=== PATIENT | female | born 1965 | race Caucasian/White ===

== ENCOUNTER 2020-12-23 09:23 | Outpatient (CLI) | payer OTHER, SELFPAY ==
--- NOTE | ~2020-12-23 | MM_ITS ---
EXAMINATION: MM screening sosa BI w sera HISTORY: Screening TECHNIQUE: Craniocaudal and mediolateral oblique 3-D tomosynthesis images were obtained and synthetic 2-D images were generated. CAD analysis was submitted and interpreted. COMPARISON: Comparison to multiple prior studies sequentially, with oldest reviewed study dated 07/25. BREAST PARENCHYMAL COMPOSITION: There are scattered areas of fibroglandular density. FINDINGS: There is no evidence of suspicious mass, calcification, or architectural distortion to sugg est malignancy in either breast. There has been no suspicious interval change. IMPRESSION: 1. No mammographic evidence of malignancy. 2. Recommend routine screening mammography in one year. BI-RADS Category 1: Negative Reviewed, dictated and finalized at location A. RVISOR ESTIMATOR AND DRAFTER
== END 2020-12-23 09:24 | disposition home or self-care (01) ==
LOC: ANHIMG 09:25
PROVIDERS: PCP Family Medicine; Visit Provider Family Medicine
DX: Z12.31 Encounter for screening mammogram for malignant neoplasm of breast (principal)
CPT/HCPCS: 77063; 77067

== ENCOUNTER → 2021-12-17 00:51 | Outpatient (CLI) | payer OTHER, SELFPAY ==
[2021-12-18 10:57] LABS: SARS-CoV-2 RNA PCR Negative
== END ==
PROVIDERS: PCP Family Medicine; Visit Provider Family Medicine
DX: R68.89 Other general symptoms and signs (principal); Z20.822 Contact with and (suspected) exposure to COVID-19
CPT/HCPCS: C9803; U0003; U0005

== ENCOUNTER 2022-02-02 09:30 | Outpatient (CLI) | payer OTHER, SELFPAY ==
--- NOTE | ~2022-02-02 | MM_ITS ---
EXAMINATION: MM screening sosa BI w sera HISTORY: Screening TECHNIQUE: Craniocaudal and mediolateral oblique 3-D tomosynthesis images were obtained and synthetic 2-D images were generated. CAD analysis was submitted and interpreted. COMPARISON: Comparison to multiple prior studies sequentially, with oldest reviewed study dated 11/01. BREAST PARENCHYMAL COMPOSITION: There are scattered areas of fibroglandular density. FINDINGS: There is no evidence of suspicious mass, calcification, or architectural distortion to sugg est malignancy in either breast. There has been no suspicious interval change. IMPRESSION: 1. No mammographic evidence of malignancy. 2. Recommend routine screening mammography in one year. BI-RADS Category 1: Negative Reviewed, dictated and finalized at location A. GATION DOCKET MANAGER
== END 2022-02-02 09:31 | disposition home or self-care (01) ==
LOC: ANHIMG 09:32
PROVIDERS: PCP Family Medicine; Visit Provider Family Medicine
DX: Z12.31 Encounter for screening mammogram for malignant neoplasm of breast (principal)
CPT/HCPCS: 77063; 77067

== ENCOUNTER 2022-11-01 11:21 | Outpatient (CLI) | payer OTHER, SELFPAY ==
--- NOTE | ~2022-11-01 | CT_ITS ---
EXAMINATION: CT abdomen pelvis w con DATE: 11/01/2022 11:51 INDICATION: Abdominal pain. Fever. TECHNIQUE: Computed tomography (CT) of the abdomen and pelvis was performed with 100 mL Omnipaque 350 intravenous contrast. Automated exposure control and iterative reconstruction technique were employe d. The dose-length product was 408.45 mGy-cm. COMPARISON: None. FINDINGS: The visualized portions of the lung bases demonstrate mild atelectasis. No pleural effusion . The heart size is normal. No pericardial effusion. Pectus excavatum is noted. There is a 12 mm cyst in the liver. There are changes of cholecystectomy. The spleen, pancreas, adrenal glands, and kidney s are normal. There are no dilated loops of bowel. The appendix is normal. There are no pathologicall y enlarged lymph nodes. There is no free intraperitoneal fluid. There is severe thoracic spondylosis and mild lumbar spondylosis. IMPRESSION: 1. No etiology for the patient's symptoms. Reviewed, dictated and finalized at location A. SCAPE NURSERYMAN
== END 2022-11-01 11:22 | disposition home or self-care (01) ==
PROVIDERS: PCP Family Medicine; Visit Provider Physician Assistant
DX: R10.31 Right lower quadrant pain (principal)
CPT/HCPCS: 74177; Q9967

== ENCOUNTER 2022-12-02 12:51 | Emergency (ER) | payer OTHER, SELFPAY ==
[2022-12-02 15:10] VITALS: BP 147/68; PULSE 89; RESP 16; TEMP 37.7; O2SAT 100
--- NOTE | 2022-12-02 15:32 | ED.URI ---
HPI - URI/Sore Throat General Chief Complaint: Upper Respiratory Infection Stated Complaint: cov pos, wants flu test Time Seen by Provider: 12/02/22 15:28 Source: patient and RN notes reviewed Mode of arrival: ambulatory Limitations: no limitations History of Present Illness HPI Narrative: 57-year-old female presented for complaint of headache, body aches, sinus pressure/congestion, cough, fever/chills. Onset 2 days. Temperature up to 100. She tested positive for COVID at home yesterday and wanted to confirm this positive test. She also wanted to test for influenza. 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 She denies shortness of breath, wheezing, nausea vomiting, diarrhea. MD elicited complaint: cough Related Data Allergies Allergy/AdvReac Type Severity Reaction Status Date / Time Antihistamines - Allergy Mild fast heart Verified 12/02/22 15:18 Ethylenediamine rate erythromycin base Allergy Mild Nausea and Verified 12/02/22 15:18 Vomiting Review of Systems Review of Systems: Per HPI [facility] Past Medical History Medical History Anxiety Depression Surgical History Surgical History Hx of cholecystectomy (~2009) Social History Social History Smoking packs per day: 0.25 Smoking cigarettes per day: 5.0 Years smoked: 1 Smoking pack-years: 0.25 Smoking status: Former smoker Tobacco type: cigarettes Additional smoking assessment comments: Patient states she smoked for a short period of time. Substance use type: does not use Lack of Transportation: No Lack of Food: Never True Current Housing: I Have Housing Concerned About Future Housing: No Difficulty Paying Gas/Electric Bills: No Difficulty Paying for Meds: No Currently Unemployed: No Education: High School Diploma/GED Difficulty w/ Childcare or Family Care: No Exam Narrative: GENERAL: Ill-appearing, nontoxic EYES: PERRLA, conjunctivae clear ENT: Mucous membranes moist. TM pearly barton with dull light reflex bilaterally; no tragal tenderness. CHEST: Clear to auscultation, breath sounds equal. No wheezing, rhonchi, rales, or stridor. No respiratory distress, speaks in full sentences. HEART: Regular rate and rhythm. No murmur heard. SKIN: Warm, dry, no rash. NEURO: Alert and oriented x3. PSYCH: Normal mood and affect Course Course Emergency Course: Patient is aware of diagnosis, understands and agrees to treatment plan. Anticipatory guidance given. Patient agrees to follow-up as directed and is aware of reasons to seek care at the emergency department. Portions of this record may have been created with voice recognition software Level of Care: Express Care Visit Vital Signs Vital signs: Vital Signs Temperature 99.9 F H 12/02/22 15:10 Pulse Rate 89 12/02/22 15:10 Respiratory Rate 16 12/02/22 15:10 Blood Pressure 147/68 H 12/02/22 15:10 Pulse Oximetry 100 12/02/22 15:10 Oxygen Delivery Room Air 12/02/22 15:10 Temperature 99.9 F H 12/02/22 15:10 Pulse Rate 89 12/02/22 15:10 Respiratory Rate 16 12/02/22 15:10 Blood Pressure 147/68 H 12/02/22 15:10 Pulse Oximetry 100 12/02/22 15:10 Oxygen Delivery Room Air 12/02/22 15:10 reviewed MDM - URI/Sore Throat MDM Narrative Medical decision making narrative: Influenza negative. She is advised the positive COVID test will suffice, and discussed importance of quarantine. Advised supportive measures and signs/symptoms to go to the ER. Pt is appropriate for outpt treatment and f/u. Differential Diagnosis Differential diagnosis: Likely upper respiratory infection, sinusitis and viral infection Lab Data Labs: Influenza A Screen Negative Reference Range: Negati
== END 2022-12-02 15:45 | disposition home or self-care (01) ==
PROVIDERS: Emergency Provider Nurse Practitioner Family; PCP Family Medicine
DX: U07.1 COVID-19 (principal); Z87.891 Personal history of nicotine dependence; F41.9 Anxiety disorder, unspecified; F32.A Depression, unspecified
CPT/HCPCS: 87804; 99213; G0463

== ENCOUNTER 2023-03-07 10:36 | Outpatient (CLI) | payer OTHER, SELFPAY ==
[2023-03-07 19:52] LABS: Basophils Percent Auto 0.8 % (0.2-1.2); Eosinophils Absolute Auto 0.1 K/mm3 (0-0.3); Hematocrit 39.4 % (37.0-47.0); Hemoglobin 12.1 g/dL (12.0-15.0); Immature Granulocyte Absolute 0.02 K/mm3 (0.00-0.031); Immature Granulocyte Percent A 0.4 % (0-0.5); Immature Platelet Fraction Pct 1.3 % (0.9-11.2); Lymphocytes Absolute Auto 2.01 K/mm3 (0.9-3.2); Lymphocytes Percent Auto 39.7 % (18.3-44.2); Mean Corpuscular HGB Conc 30.7 g/dl (32-36); Mean Corpuscular Volume 84.5 fl (80-100); Monocytes Absolute Auto 0.5 K/mm3 (0.1-0.6); Monocytes Percent Auto 9.5 % (2.6-8.5); Neutrophils Absolute Auto 2.5 K/mm3 (1.3-6.7); Neutrophils Percent Auto 48.6 % (45.5-73.1); Platelet Count Result 319 k/mm3 (150-375); Red Blood Count 4.66 M/mm3 (4.2-5.4); Red Cell Distribution Width 14.8 % (11.5-14.5); White Blood Count 5.1 K/mm3 (4.5-10.0)
[2023-03-07 20:13] LABS: LDL Cholesterol Direct 83 mg/dL
[2023-03-07 20:14] LABS: Vitamin D 25 Hydroxy 24.5 ng/mL
[2023-03-07 20:16] LABS: Alanine Aminotransferase 23 U/L (6-35); Albumin Level 4.3 g/dL (3.5-5.1); Alkaline Phosphatase 113 U/L (38-126); Anion Gap 6 mmol/L (8-16); Aspartate Amino Transferase 35 U/L (14-36); Bilirubin,Total 0.8 mg/dL (0.2-1.3); Blood Urea Nitrogen 15 mg/dL (7-17); Calcium 9.3 mg/dL (8.4-10.2); Carbon Dioxide 28 mmol/L (22-30); Chloride 105 mmol/L (98-107); Cholesterol 186 mg/dL (0-200); Estimated Glomerular Filt Rate > 60; Glucose 103 mg/dL (65-110); HDL Direct 68 mg/dL; Potassium 4.2 mmol/L (3.4-5.0); Sodium 139 mmol/L (137-145)
[2023-03-07 20:19] LABS: Triglycerides 98 mg/dL (<150)
== END 2023-03-07 10:37 | disposition home or self-care (01) ==
LOC: ANHGOSHLAB 10:37
PROVIDERS: PCP Internal Medicine; Visit Provider Clinical Nurse Specialist
DX: Z13.228 Encounter for screening for other metabolic disorders (principal); Z13.220 Encounter for screening for lipoid disorders; E55.9 Vitamin D deficiency, unspecified; F41.9 Anxiety disorder, unspecified
CPT/HCPCS: 36415; 72072; 73502; 80053; 80061; 82306; 84443; 85025; 85055

== ENCOUNTER 2023-03-07 11:12 | Outpatient (CLI) | payer OTHER, SELFPAY ==
--- NOTE | ~2023-03-07 | XR_ITS ---
EXAMINATION: XR thoracic spine 3V DATE: 03/07/2023 11:40 INDICATION: Back pain TECHNIQUE: AP, lateral and lateral swimmer's views of the thoracic spine were obtained. COMPARISON: None. FINDINGS: Bone alignment is normal. There is no fracture. There is mild loss of intervertebral disc s pace height throughout the thoracic spine. Small degenerative osteophytes project from the anterior e ndplates of multiple vertebral bodies. The vertebral body heights are maintained. IMPRESSION: 1. Moderate thoracic spondylosis without acute findings. Reviewed, dictated and finalized at location A.
--- NOTE | ~2023-03-07 | XR_ITS ---
EXAMINATION: XR hip RT 2V w AP pelvis INDICATION: Right hip pain TECHNIQUE: AP view of the pelvis and two views of the right hip are obtained. COMPARISON: None available FINDINGS: Bone alignment is normal. There is no fracture. There are phleboliths of the pelvis. The so ft tissues are unremarkable. IMPRESSION: 1. No acute osseous abnormality. Reviewed, dictated and finalized at location A.
== END 2023-03-07 11:13 | disposition home or self-care (01) ==
PROVIDERS: PCP Internal Medicine; Visit Provider Obstetrics & Gynecology
DX: M25.551 Pain in right hip (principal); M47.894 Other spondylosis, thoracic region
CPT/HCPCS: 72072; 73502

== ENCOUNTER 2023-06-07 08:26 | Outpatient (CLI) | payer OTHER, SELFPAY ==
--- NOTE | ~2023-06-07 | MM_ITS ---
EXAMINATION: MM screening sosa BI w sera HISTORY: Screening mammogram TECHNIQUE: Craniocaudal and mediolateral oblique 3-D tomosynthesis images were obtained and synthetic 2-D images were generated. CAD analysis was submitted and interpreted. COMPARISON: 02/02/2022, 12/23/2020, 11/13/2019 BREAST PARENCHYMAL COMPOSITION:There are scattered areas of fibroglandular density. FINDINGS: No suspicious mass, calcification, or architectural distortion are identified in either bambi ast to suggest malignancy. There has been no suspicious interval change. IMPRESSION: No mammographic evidence of malignancy. Recommend routine screening mammography in one year. BI-RADS Category 1: Negative Reviewed, dictated and finalized at location .
== END 2023-06-07 08:27 | disposition home or self-care (01) ==
LOC: ANHIMG 08:28
PROVIDERS: PCP Internal Medicine; Visit Provider Internal Medicine
DX: Z12.31 Encounter for screening mammogram for malignant neoplasm of breast (principal)
CPT/HCPCS: 77063; 77067

== ENCOUNTER 2023-09-26 12:05 | Outpatient (CLI) | payer OTHER, SELFPAY ==
--- NOTE | ~2023-09-26 | XR_ITS ---
EXAMINATION: XR chest 2V 09/26/2023 12:22 INDICATION: Cough PROCEDURE: 2 view chest COMPARISON: No prior studies for comparison. FINDINGS: The lungs are clear. The cardiomediastinal silhouette is within normal limits. There are no pleural effusions. There is no pneumothorax suspected. IMPRESSION: 1: NO ACUTE CARDIOPULMONARY DISEASE. Reviewed, dictated and finalized at location B.
== END 2023-09-26 12:06 | disposition home or self-care (01) ==
PROVIDERS: PCP Internal Medicine; Visit Provider Nurse Practitioner Family
DX: R05.9 Cough, unspecified (principal)
CPT/HCPCS: 71046

== ENCOUNTER 2024-04-24 09:05 | Outpatient (CLI) | payer OTHER, SELFPAY ==
[2024-04-24 09:30] LABS: Basophils Absolute Auto 0.1 K/mm3 (0.0-0.1); Basophils Percent Auto 0.8 % (0.2-1.2); Eosinophils Absolute Auto 0.1 K/mm3 (0-0.3); Eosinophils Percent Auto 0.8 % (0-4.4); Hematocrit 41.9 % (37.0-47.0); Hemoglobin 12.7 g/dL (12.0-15.0); Immature Granulocyte Absolute 0.01 K/mm3 (0.00-0.031); Immature Granulocyte Percent A 0.2 % (0-0.5); Lymphocytes Absolute Auto 2.41 K/mm3 (0.9-3.2); Lymphocytes Percent Auto 38.6 % (18.3-44.2); Mean Corpuscular HGB Conc 30.3 g/dl (32-36); Mean Corpuscular Hemoglobin 24.1 pg (26-34); Mean Corpuscular Volume 79.4 fl (80-100); Mean Platelet Volume 8.4 fl (7.4-10.4); Monocytes Absolute Auto 0.6 K/mm3 (0.1-0.6); Monocytes Percent Auto 9.6 % (2.6-8.5); Neutrophils Absolute Auto 3.1 K/mm3 (1.3-6.7); Platelet Count Result 314 k/mm3 (150-375); Red Blood Count 5.28 M/mm3 (4.2-5.4); Red Cell Distribution Width 15.4 % (11.5-14.5); White Blood Count 6.3 K/mm3 (4.5-10.0)
[2024-04-24 09:41] LABS: Alanine Aminotransferase 25 U/L (6-35); Albumin Level 4.6 g/dL (3.5-5.1); Alkaline Phosphatase 105 U/L (38-126); Anion Gap 7 mmol/L (4-12); Aspartate Amino Transferase 32 U/L (14-36); Bilirubin,Total 0.7 mg/dL (0.2-1.3); Blood Urea Nitrogen 15 mg/dL (7-17); Calcium 9.3 mg/dL (8.4-10.2); Carbon Dioxide 27 mmol/L (22-30); Chloride 106 mmol/L (98-107); Cholesterol 206 mg/dL (0-200); Estimated Glomerular Filt Rate > 60; Glucose 109 mg/dL (65-110); HDL Direct 68 mg/dL; Potassium 4.1 mmol/L (3.4-5.0); Sodium 140 mmol/L (137-145); Triglycerides 181 mg/dL (<150)
[2024-04-24 09:53] LABS: LDL Cholesterol Direct 95 mg/dL
== END 2024-04-24 09:06 | disposition home or self-care (01) ==
LOC: ANHLAB 09:06
PROVIDERS: PCP Internal Medicine; Visit Provider Clinical Nurse Specialist
DX: E55.9 Vitamin D deficiency, unspecified (principal); F41.9 Anxiety disorder, unspecified; Z13.220 Encounter for screening for lipoid disorders; Z13.228 Encounter for screening for other metabolic disorders
CPT/HCPCS: 36415; 80053; 80061; 82306; 84443; 85025

== ENCOUNTER 2024-05-02 13:16 | Emergency (ER) | payer OTHER, SELFPAY ==
--- NOTE | ~2024-05-02 | XR_ITS ---
EXAMINATION: XR chest 2V DATE: 05/02/2024 14:52 INDICATION: Cough and wheezing. Fever. TECHNIQUE: Frontal and lateral views of the chest were obtained. COMPARISON: Chest 2 views 09/26/2023, CT abdomen and pelvis 11/01/2022 FINDINGS: There is no pneumonia, pleural effusion, or pneumothorax. The heart size is normal. Surgica l clips in the right upper quadrant are likely from cholecystectomy. There is mild chronic anterior w edging of multiple thoracic vertebral bodies. IMPRESSION: 1. No acute cardiopulmonary disease. Reviewed, dictated and finalized at location E.
[2024-05-02 13:31] VITALS: BP 102/87; PULSE 94; RESP 16; TEMP 37.3; O2SAT 98
--- NOTE | 2024-05-02 14:30 | ED.GENADULT ---
HPI - General Adult General Chief complaint: Upper Respiratory Infection Stated complaint: WHEEZING/COUGH/FEVER History of Present Illness HPI narrative: 59-year-old female comes into the clinic with complaints of wheezing coughing and chest congestion x 5 days. Patient states that they have been having some shortness of breath, nasal congestion, and dry cough. Patient denies chest pain. Patient states they have had a fever of 100 last night and feels tired today. Patient states they tried Tylenol and left over albuterol inhaler from previous uri to relieve symptoms. patient states they have been using albuterol inhaler 3 times today since symptoms occur. Patient states the albuterol inhaler has been helping the cough. Related Data Allergies Allergy/AdvReac Type Severity Reaction Status Date / Time Antihistamines - Allergy Mild fast heart Verified 05/02/24 13:26 Ethylenediamine rate erythromycin base Allergy Mild Nausea and Verified 05/02/24 13:26 Vomiting Review of Systems Review of Systems: CONSTITUTIONAL: Denies fever today but positive fever yesterday of 100.5, positive chills, denies sweats. EYES: Denies visual changes, redness, or discharge. ENT: Denies rhinorrhea, congestion, sore throat, or otalgia. CARDIOVASCULAR: Denies chest pain, palpitations, or edema. RESPIRATORY: positive cough with mucous production and positive dyspnea intermitent. GASTROINTESTINAL: Denies abdominal pain, nausea, vomiting, or diarrhea. GENITOURINARY: Denies dysuria or hematuria. SKIN: Denies rash or itching. MUSCULOSKELETAL: Denies back pain, joint pain, or myalgia. NEUROLOGIC: Denies headache, numbness, or weakness. PSYCHIATRIC: Denies anxiety or depression. [facility] Past Medical History Medical History Anxiety Bronchitis Depression Esophageal reflux Fibromyalgia Vitamin D deficiency Surgical History Surgical History Hx of cholecystectomy (~2009) Hx of tonsillectomy Social History Social History Smoking packs per day: 0.25 Smoking cigarettes per day: 5.0 Years smoked: 1 Smoking pack-years: 0.25 Smoking status: Former smoker Tobacco type: cigarettes Additional smoking assessment comments: Patient states she smoked for a short period of time. Substance use type: does not use Lack of Transportation: No Lack of Food: Never True Current Housing: I Have Housing Concerned About Future Housing: No Difficulty Paying Gas/Electric Bills: No Difficulty Paying for Meds: No Currently Unemployed: No Education: High School Diploma/GED Difficulty w/ Childcare or Family Care: No Comments At the time of my signature I agree with nursing past medical history, surgical, social, and family history. There is no relevant family history pertinent to the presenting complaint. Exam Narrative: GENERAL: Well-appearing, well-nourished, and in no acute distress. HEAD: Normocephalic, atraumatic. EYES: PERRLA and EOMI. ENT: Nares clear, no rhinorrhea or epistaxis. Mucous membranes moist. bilaterally ears negative for erythema. Throat negative for erythema, negative for tonsil enlargement. NECK: Supple. No lymphadenopathy CHEST: wheezing and rales heard upon auscultation in all 4 quadrants. No respiratory distress. HEART: Regular rate and rhythm. No murmur heard. Normal peripheral pulses. ABDOMEN: Soft, nontender, nondistended, normal active bowel sounds. EXTREMITIES: Normal range of motion. No edema. SKIN: Warm, dry, no rash. NEURO: No focal deficits. Alert and oriented x3. Course Course Level of Care: Express Care Visit Vital Signs Vital signs: Vital Signs Temperature 37.3 C 05/02/24 13:31 Pulse Rate 94 05/02/24 13:31 Respiratory Rate 16 05/02/24 13:31 Blood Pressure 102/87 05/02/24 13:31 Pulse Oximetry 98
[2024-05-02] MEDS: ALBUTEROL SULFATE NEB 2.5 MG/3 ML INH INHALATION (14:48)
[2024-05-02] MEDS: IPRATROPIUM 0.5 MG/ALBUTEROL SULFATE 2.5 MG AMPUL.NEB 3 ML INHALATION (14:49)
[2024-05-02 15:10] VITALS: PULSE 97; RESP 16; O2SAT 100
== END 2024-05-02 15:40 | disposition home or self-care (01) ==
PROVIDERS: Emergency Provider Nurse Practitioner Family; PCP Internal Medicine
DX: J06.9 Acute upper respiratory infection, unspecified (principal); R06.2 Wheezing; Z20.822 Contact with and (suspected) exposure to COVID-19; Z87.891 Personal history of nicotine dependence; K21.9 Gastro-esophageal reflux disease without esophagitis; M79.7 Fibromyalgia; E55.9 Vitamin D deficiency, unspecified; F41.9 Anxiety disorder, unspecified; F32.A Depression, unspecified
CPT/HCPCS: 71046; 87426; 87804; 94640; 99213; G0463

== ENCOUNTER 2024-06-11 15:45 | Outpatient (CLI) | payer OTHER, SELFPAY ==
--- NOTE | ~2024-06-11 | MM_ITS ---
EXAMINATION: MM screening sosa BI w sera HISTORY: Screening TECHNIQUE: Craniocaudal and mediolateral oblique 3-D tomosynthesis images were obtained and synthetic 2-D images were generated. CAD analysis was submitted and interpreted. COMPARISON: Comparison to multiple prior studies sequentially, with oldest reviewed study dated 03/2017. BREAST PARENCHYMAL COMPOSITION: Not dense: There are scattered areas of fibroglandular density. FINDINGS: There is no evidence of suspicious mass, calcification, or architectural distortion to sugg est malignancy in either breast. There has been no suspicious interval change. IMPRESSION: 1. No mammographic evidence of malignancy. 2. Recommend routine screening mammography in one year. BI-RADS Category 1: Negative Reviewed, dictated and finalized at location B.
== END 2024-06-11 15:46 | disposition home or self-care (01) ==
PROVIDERS: PCP Internal Medicine; Visit Provider Clinical Nurse Specialist
DX: Z12.31 Encounter for screening mammogram for malignant neoplasm of breast (principal)
CPT/HCPCS: 77063; 77067

== ENCOUNTER 2024-08-19 05:58 | Day surgery (SDC) | payer OTHER, SELFPAY ==
[2024-04-22 13:29] VITALS: BMI 28.8
[2024-07-29 13:56] VITALS: BMI 30.5
--- NOTE | 2024-08-18 13:10 | P.PNAN_ITS ---
Anes - Initial Pre Proc Eval Procedure: Operation Date: 08/19/24 07:30 Proposed Procedures p Screening Colonoscopy - Michael Beckwith MD Date/Time: 08/18/24 13:10 Surgeon: Michael Beckwith MD Pre Op Diagnosis: Screening neoplasm of colon Patient Data Age: 59 Gender: F Height: 1.6 m Weight: 78.3 kg Allergies Allergy/AdvReac Type Severity Reaction Status Date / Time Antihistamines - Allergy Mild fast heart Verified 08/19/24 06:14 Ethylenediamine rate erythromycin base Allergy Mild Nausea and Verified 08/19/24 06:14 Vomiting Home Medications Medication Instructions Recorded Confirmed Type fluoxetine 20 mg capsule 20 mg PO DAILY #90 caps 03/17/24 08/19/24 Rx omeprazole 40 mg capsule,delayed 40 mg PO .every other day #45 caps 07/23/24 08/19/24 Rx release Patient hx anesthesia problems: none Family hx anesthesia problems: none Results Review: All pre-operative results and documents have been reviewed as part of the pre- operative evaluation. [facility] Past Medical History Medical History (Updated 08/18/24 @ 13:11 by Giles Shine DO) Anemia Anxiety Bronchitis Depression Esophageal reflux Fibromyalgia Vitamin D deficiency Surgical History Surgical History Hx of cholecystectomy (~2009) Hx of tonsillectomy Social History Social History Smoking packs per day: 0.25 Smoking cigarettes per day: 5.0 Years smoked: 1 Smoking pack-years: 0.25 Smoking status: Never smoker Tobacco type: cigarettes Additional smoking assessment comments: Patient states she smoked for a short period of time. Alcohol use details: RARELY Substance use type: does not use Lack of Transportation: No Lack of Food: Never True Current Housing: I Have Housing Concerned About Future Housing: No Difficulty Paying Gas/Electric Bills: No Difficulty Paying for Meds: No Currently Unemployed: No Education: High School Diploma/GED Difficulty w/ Childcare or Family Care: No Living arrangements: alone Spiritual care concerns: No Anes - Eval Final PreProcedure Day of Procedure 08/18/24 13:10 Patient weight: obese Heart: regular rate and rhythm Lungs: clear to auscultation Airway: Mallampati scale class II Neurological: alert and oriented Last oral intake: >/= 8 hours ASA classification: II Emergent: no Anesthetic plan: proceed Anesthesia type and monitoring: general GIVS and standard monitoring Results Review: All pre-operative results and documents have been reviewed as part of the pre- operative evaluation. Informed Consent: The patient's anesthetic plan and its attendant risks and benefits were discussed with the patient/family/POA. Questions were solicited and answers provided to the satisfaction of the patient/family/POA.
[2024-08-19 06:20] VITALS: BP 120/70; PULSE 86; RESP 18; TEMP 36.8; O2SAT 98
[2024-08-19] MEDS: LACTATED RINGERS 1,000 ML 150 ML IV CONT (06:33)
--- NOTE | 2024-08-19 07:15 | PM.HPGS ---
History of Present Illness History of Present Illness Consent: Risks, benefits, and alternatives have been discussed and questions answered. Patient agrees to proceed with procedure. Chief complaint: Screening neoplasm of colon Narrative: Taylor Dalton is a 59 year old female presents for screening colonoscopy. Patient's current weight appetite and bowel movements are normal. Patient denies abdominal pain. Patient denies any blood in his stools. Family history is noncontributory. Previous colonoscopy 10 years ago was unremarkable. Review of Systems Review of Systems: All systems reviewed & are unremarkable except as noted in HPI and below PMFSH Past Medical History Medical History (Updated 08/18/24 @ 13:11 by Giles Shine, ) Anemia Anxiety Bronchitis Depression Esophageal reflux Fibromyalgia Vitamin D deficiency Surgical History Surgical History Hx of cholecystectomy (~2009) Hx of tonsillectomy Social History Social History Smoking packs per day: 0.25 Smoking cigarettes per day: 5.0 Years smoked: 1 Smoking pack-years: 0.25 Smoking status: Never smoker Tobacco type: cigarettes Additional smoking assessment comments: Patient states she smoked for a short period of time. Alcohol use details: RARELY Substance use type: does not use Lack of Transportation: No Lack of Food: Never True Current Housing: I Have Housing Concerned About Future Housing: No Difficulty Paying Gas/Electric Bills: No Difficulty Paying for Meds: No Currently Unemployed: No Education: High School Diploma/GED Difficulty w/ Childcare or Family Care: No Living arrangements: alone Spiritual care concerns: No Meds Home Medications and Allergies Home Medications Medication Instructions Recorded Confirmed Type fluoxetine 20 mg capsule 20 mg PO DAILY #90 caps 03/17/24 08/19/24 Rx omeprazole 40 mg capsule,delayed 40 mg PO .every other day #45 caps 07/23/24 08/19/24 Rx release Allergies Allergy/AdvReac Type Severity Reaction Status Date / Time Antihistamines - Allergy Mild fast heart Verified 08/19/24 06:14 Ethylenediamine rate erythromycin base Allergy Mild Nausea and Verified 08/19/24 06:14 Vomiting Vital Signs Vital Signs - 24 hr 08/19/24 06:20 Temperature 98.3 F Pulse Rate 86 Respiratory Rate 18 Blood Pressure 120/70 Pulse Oximetry 98 Oxygen Delivery Room Air Exam Narrative: Physical exam reveals patient to be alert. HEENT exam is unremarkable. Is anicteric. Lungs are clear to auscultation and percussion. Heart is without murmur or extra sounds. Abdomen bowel sounds are present soft nontender with no organomegaly. Digital and external rectal exam is normal. Assessment and Plan Assessment and plan (1) Screening for colon cancer: Code(s): Z12.11 - Encounter for screening for malignant neoplasm of colon Status: Acute Assessment and Plan: Patient presents today for neoplasia screening colonoscopy. Further recommendations may be given after colonoscopy
[2024-08-19] MEDS: SIMETHICONE ORAL SUSPENSION 20 MG/0.3 ML 30 ML BOTTLE 0.6 ML IRRIGATION (07:38)
[2024-08-19 07:45] VITALS: BP 98/60; PULSE 72; RESP 16; O2SAT 98
[2024-08-19 07:55] VITALS: BP 100/61; PULSE 73; RESP 16; O2SAT 99
[2024-08-19 08:05] VITALS: BP 105/60; PULSE 68; RESP 16; O2SAT 99
--- NOTE | 2024-08-19 10:48 | WPDANESPN ---
Anes - Prog Note Post-Op Date/Time: 08/19/24 10:48 Cardiovascular status: normal Respiratory status: normal Airway patency: baseline Mental status: baseline Post-Op hydration status: normal Vital Signs: Last Vital Signs Temp 36.8 C 08/19/24 06:20 Pulse 68 08/19/24 08:05 Resp 16 08/19/24 08:05 BP 105/60 08/19/24 08:05 Pulse Ox 99 08/19/24 08:05 O2 Del Method Room Air 08/19/24 08:05 Pain Score (VAS): 0 I/O: Intake & Output 08/18/24 08/19/24 08/19/24 23:59 07:59 15:59 Intake Total 400 150 Balance 400 150 Post-procedural complaints: none Patient Feedback: Patient satisfied with anesthetic care. Other Findings: Patient vital signs back to baseline. Patient denies nausea and vomiting. Patient's pain under control. Patient OK for discharge.
== END 2024-08-19 08:20 | disposition home or self-care (01) ==
PROVIDERS: PCP Internal Medicine; Visit Provider Internal Medicine Gastroenterology
PROC: 0DJD8ZZ Inspection of Lower Intestinal Tract, Via Natural or Artificial Opening Endoscopic (ICD-10-PCS; CPT 45378; principal; 2024-08-19 07:30)
DX: Z12.11 Encounter for screening for malignant neoplasm of colon (principal); K64.8 Other hemorrhoids
CPT/HCPCS: 45378

== ENCOUNTER 2025-04-09 12:03 | Emergency (ER) | payer OTHER, SELFPAY ==
[2025-04-09 12:31] VITALS: BP 127/57; PULSE 89; RESP 16; TEMP 36.8; O2SAT 99
--- NOTE | 2025-04-09 13:08 | ED.GENADULT ---
HPI - General Adult General Chief complaint: Upper Respiratory Infection Stated complaint: Sore Throat Time Seen by Provider: 04/09/25 13:08 Source: patient Mode of arrival: ambulatory Limitations: no limitations History of Present Illness HPI narrative: 60-year-old female patient presents to the [facility] with complaints of a sore throat x1 week. Patient denies any fevers, body aches or chills. Denies any ear pain. Patient states she has had a mild cough. Denies chest pain or shortness of breath. Patient states she has tried taking some [id number] Sudafed for her symptoms. Related Data Allergies Allergy/AdvReac Type Severity Reaction Status Date / Time Antihistamines - Allergy Mild fast heart Verified 04/09/25 13:11 Ethylenediamine rate erythromycin base Allergy Mild Nausea and Verified 04/09/25 13:11 Vomiting Review of Systems Review of Systems: CONSTITUTIONAL: Denies fever, chills, or sweats. EYES: Denies visual changes, redness, or discharge. ENT: Denies rhinorrhea, congestion, positive sore throat, denies otalgia. CARDIOVASCULAR: Denies chest pain, palpitations, or edema. RESPIRATORY: Positive cough or dyspnea. GASTROINTESTINAL: Denies abdominal pain, nausea, vomiting, or diarrhea. GENITOURINARY: Denies dysuria or hematuria. SKIN: Denies rash or itching. MUSCULOSKELETAL: Denies back pain, joint pain, or myalgia. NEUROLOGIC: Denies headache, numbness, or weakness. PSYCHIATRIC: Denies anxiety or depression. FOR[facility]LY [facility] Past Medical History Medical History Anemia Fibromyalgia Bronchitis Vitamin D deficiency Esophageal reflux Anxiety Depression Surgical History Surgical History Hx of tonsillectomy Hx of cholecystectomy (~2009) Social History Social History Smoking packs per day: 0.25 Smoking cigarettes per day: 5.0 Years smoked: 1 Smoking pack-years: 0.25 Smoking status: Never smoker Tobacco type: cigarettes Additional smoking assessment comments: Patient states she smoked for a short period of time. Alcohol use details: RARELY Substance use type: does not use Lack of Transportation: No Lack of Food: Never True Current Housing: I Have Housing Concerned About Future Housing: No Difficulty Paying Gas/Electric Bills: No Difficulty Paying for Meds: No Currently Unemployed: No Education: High School Diploma/GED Difficulty w/ Childcare or Family Care: No Living arrangements: alone Spiritual care concerns: No Comments At the time of my signature I agree with nursing past medical history, surgical, social, and family history. There is no relevant family history pertinent to the presenting complaint. Exam Narrative: GENERAL: Well-appearing, well-nourished, and in no acute distress. HEAD: Normocephalic, atraumatic. EYES: PERRLA and EOMI. ENT: Nares clear, no rhinorrhea or epistaxis. Mucous membranes moist. bilateral TMs are clear no erythema foreign bodies the canal. Posterior pharynx with slight postnasal drip no tonsillar enlargement, no exudates or lesions present. NECK: Supple. No lymphadenopathy CHEST: Clear to auscultation. No respiratory distress. HEART: Regular rate and rhythm. No murmur heard. Normal peripheral pulses. ABDOMEN: Soft, nontender, nondistended, normal active bowel sounds. EXTREMITIES: Normal range of motion. No edema. SKIN: Warm, dry, no rash. NEURO: No focal deficits. Alert and oriented x3. Course Course Level of Care: Express Care Visit Vital Signs Vital signs: Vital Signs Temperature 36.8 C 04/09/25 12:31 Pulse Rate 89 04/09/25 12:31 Respiratory Rate 16 04/09/25 12:31 Blood Pressure 127/57 L 04/09/25 12:31 Pulse Oximetry 99 04/09/25 12:31 Temperature 36.8 C 04/09/25 12:31 Pulse Rate 89 04/09/25 12:31 Respiratory Rate 16 04/09/25 12:31 Blood Pressure 127/57 L 04/09/25 12:31 Pulse Oximetry 99 04/09/25 12:31 Vital signs reviewed. Medical Decision Making MDM Narrative Medical decision making narrative: Notify patient that her point of care strep test was negative. We will send to lab for culture if it does come back positive we will call her antibiotics at that time. Discussed with patient this is most likely allergies encouraged to use pouj-eyg-[id number] antihistamine such as Zyrtec, Claritin or Teresa. Also encouraged warm saltwater gargles and hot tea and hits honey to help ease the sore throat pain. Patient verbalized understanding denies any other questions or concerns at this time. Differential Diagnosis Differential Diagnosis: Differential diagnosis: Viral pharyngitis, pharyngitis, group A strep, infectious mononucleosis, gonococcal pharyngitis, exudative pharyngitis, oral candidiasis. Chronic allergies, postnasal drip, GERD, abscess formation, but glottitis, retropharyngeal abscess formation, or airway obstruction. Vital Signs Vital Signs: Vital Signs Temperature 36.8 C 04/09/25 12:31 Pulse Rate 89 04/09/25 12:31 Respiratory Rate 16 04/09/25 12:31 Blood Pressure 127/57 L 04/09/25 12:31 Pulse Oximetry 99 04/09/25 12:31 Temperature 36.8 C 04/09/25 12:31 Pulse Rate 89 04/09/25 12:31 Respiratory Rate 16 04/09/25 12:31 Blood Pressure 127/57 L 04/09/25 12:31 Pulse Oximetry 99 04/09/25 12:31 Lab Data Labs: Lab Results 04/09/25 Range/Units 13:11 POC Grp A Strep Screen Negative (Negative) Critical Care Time Critical Care Time Critical Care Time: No Discharge Plan Discharge Clinical Impression: Pharyngitis Qualifiers: Pharyngitis/tonsillitis etiology: unspecified etiology Qualified Code(s): J02.9 - Acute pharyngitis, unspecified Patient Disposition: Home Condition: Stable Instructions: Antibiotic Form, Pharyngitis (ED) Additional Instructions: A sore throat can be caused by an infection from a virus or bacteria. Sore throat can also be caused by postnasal drip, allergies, and exposure to smoke. A viral sore throat last 3-4 days and cannot be treated with antibiotics. One type of sore throat virus, infectious mononucleosis ( mono ), can last for 3 weeks and older children. The germs that cause these infections are contagious and can be spread by coughing or sharing drinks or utensils. Contact her primary care physician or go to the ER if: Your trouble breathing or swallowing because her throat is swollen or sore. You're drooling because it hurts too much to swallow. You're painful lump in your throat go away after 5 days. You're fever is higher than 10 2??F or last longer than 3 days. You have confusion. You are blood in your throat. You're sore throat should feel better within 3-5 days without treatment if it is caused by virus. You may need the following: Ibuprofen or Tylenol as needed for pain or fever Gargle warm salt water Drink more liquids, cold or warm drinks may help soothe her throat. Humidifier in your room. Cough drops, ice, soft foods, or popsicles may help soothe her throat. A spoonful of honey could help with inflammation and soothe her throat. Wash her hands with soap and water, do not share food or drinks, throat away her toothbrush after 72 hours. Patient Language: Gabonese Prescriptions: No Action fluoxetine 20 mg capsule 20 mg PO DAILY Qty: 90 3RF omeprazole 40 mg capsule,delayed release(DR/EC) 40 mg PO .every other day Qty: 45 0RF Rx Instructions: DUE FOR AN APPOINTMENT Follow-up/Referrals: PHYSICIAN,JEWELRY JOBBER [Primary Care Provider] - Time of Disposition: 13:13
[2025-04-09 13:13] LABS: EDSTREPNEGPOS1 Negative (Negative)
== END 2025-04-09 13:45 | disposition home or self-care (01) ==
PROVIDERS: Emergency Provider Nurse Practitioner Family
DX: J02.9 Acute pharyngitis, unspecified (principal); Z87.891 Personal history of nicotine dependence; M79.7 Fibromyalgia; K21.9 Gastro-esophageal reflux disease without esophagitis; F41.9 Anxiety disorder, unspecified; F32.A Depression, unspecified
CPT/HCPCS: 87081; 87880; 99213; G0463

== ENCOUNTER 2025-06-12 14:29 | Emergency (ER) | payer OTHER, SELFPAY ==
[2025-06-12 14:38] VITALS: BP 129/64; PULSE 77; RESP 16; TEMP 36.3; O2SAT 100
--- NOTE | 2025-06-12 15:19 | ED_ITS ---
HPI - Head Injury General Chief complaint: Head Injury Stated complaint: HEAD INJURY Time Seen by Provider: 06/12/25 14:45 Source: patient and RN notes reviewed Mode of arrival: ambulatory Limitations: no limitations History of Present Illness HPI Narrative: Patient presents today complaining of a frontal headache. Three days ago she tripped and fell forward outside the building and struck her forehead on some b ricks on a door frame. Denies loss of consciousness at the time of injury. States she has had a mild frontal headache since the fall, but today the headache is worse, still located in the same area. Currently rates her headache 6/10. She has tried no utzy-sat-cfkzeun interventions prior to arrival. She is also complaining of being groggy after a nap today. Denies dizziness, nausea or vomiting, vision changes, neck pain. Patient drove herself here today without difficulty. States she does feel steady on her feet. Related Data Allergies Allergy/AdvReac Type Severity Reaction Status Date / Time Antihistamines - Allergy Mild fast heart Verified 06/12/25 14:42 Ethylenediamine rate erythromycin base Allergy Mild Nausea and Verified 06/12/25 14:42 Vomiting PMFSH Past Medical History Medical History Anemia Fibromyalgia Bronchitis Vitamin D deficiency Esophageal reflux Anxiety Depression Surgical History Surgical History Hx of tonsillectomy Hx of cholecystectomy (~2009) Social History Social History Smoking packs per day: 0.25 Smoking cigarettes per day: 5.0 Years smoked: 1 Smoking pack-years: 0.25 Smoking status: Never smoker Tobacco type: cigarettes Additional smoking assessment comments: Patient states she smoked for a short period of time. Alcohol use details: RARELY Substance use type: does not use Lack of Transportation: No Lack of Food: Never True Current Housing: I Have Housing Concerned About Future Housing: No Difficulty Paying Gas/Electric Bills: No Difficulty Paying for Meds: No Currently Unemployed: No Education: High School Diploma/GED Difficulty w/ Childcare or Family Care: No Living arrangements: alone Spiritual care concerns: No Comments At time of signature, I have reviewed and agree with nursing past medical, surgical, social and family history unless otherwise noted. Please see nursing chart for further information. There is no relevant family history pertinent to the presenting complaint Exam Narrative: GENERAL: Well-appearing, well-nourished, and in no acute distress. HEAD: Normocephalic. Faint linear abrasion to the right forehead with surrounding yellow healing ecchymosis. No edema. EYES: EOMI. PERRL. No nystagmus. No redness or drainage. Conjunctivae normal. ENT: Mucous membranes pink and moist. Nares clear. No rhinorrhea. TMs normal bilaterally. Throat normal. Uvula midline. NECK: Normal AROM. Supple. No lymphadenopathy. Nontender. CHEST: No respiratory distress. Clear to auscultation. HEART: Regular rate and rhythm. No murmur appreciated. EXTREMITIES: Normal range of motion. No edema. Hand beta tester equal and strong. 5/5 strength in BLE SKIN: Warm, dry, no rash. Capillary refill normal. Normal skin turgor. NEURO: No focal deficits. Alert and oriented x3. Gait steady. Climbs to exam table without difficulty. Finger nose test normal. PSYCH: Normal affect. No signs of depression or anxiety. Course Course Level of Care: Express Care Visit Vital Signs Vital signs: Vital Signs Temperature 97.4 F L 06/12/25 14:38 Pulse Rate 77 06/12/25 14:38 Respiratory Rate 16 06/12/25 14:38 Blood Pressure 129/64 06/12/25 14:38 Pulse Oximetry 100 06/12/25 14:38 Temperature 97.4 F L 06/12/25 14:38 Pulse Rate 77 06/12/25 14:38 Respiratory Rate 16 06/12/25 14:38 Blood Pressure 129/64 06/12/25 14:38 Pulse Oximetry 100 06/12/25 14:38 Reviewed MDM - Head Injury MDM Narrative Medical decision making narrative: 60-year-old female patient presents today with an increase in frontal headache s/p fall with head strike of the right forehead 3 days ago without LOC. also complaining of some grogginess after waking from a nap this afternoon. Exam is grossly normal. Patient has not tried anything for her headache since the injury. Vital signs are stable. Based on patient's history, exam, and mechanism of injury, she is likely experiencing some post concussive syndrome symptoms. Recommend Tylenol or NSAIDs for her headache and rest with PCP follow-up in 1 week for status update of symptoms. Patient is exhibiting no symptoms that would warrant a transfer to the ED for evaluation at this time such as acute vomiting, dizziness, lightheadedness, vision changes. Patient agrees with plan. Strict ED precautions discussed. Differential Diagnosis Differential diagnosis: Likely concussion without loss of consciousness and postconcussion syndrome Critical Care Time Critical Care Time Critical Care Time: No Discharge Plan Discharge Clinical Impression: Postconcussive syndrome Patient Disposition: Home Condition: Stable Instructions: Post Concussion Syndrome (ED) Additional Instructions: Your injury and symptoms are consistent with mild concussion. Please take some Tylenol or ibuprofen for your headache. Rest and stay hydrated. Follow-up with your PCP next week for re-evaluation of your symptoms. As discussed, if your symptoms significantly worsen to include vomiting, severe dizziness, severe increase in your headache, please go to the ER immediately for further evaluation Your blood pressure was elevated above 120/80 today at Urgent Care. This puts you above the threshold for follow up. Please schedule a followup visit with your personal physician as soon as possible, for further evaluation and treatment. Even blood pressure exceeding 120/80 may indicate pre-hypertension. Patient Language: Vincentian Prescriptions: No Action fluoxetine 20 mg capsule 20 mg PO DAILY Qty: 90 3RF omeprazole 40 mg capsule,delayed release(DR/EC) 40 mg PO .every other day Qty: 45 0RF Follow-up/Referrals: Conner Ansari DO [Primary Care Provider] - Stand Alone Forms: Work/School Release IP Time of Disposition: 14:59
== END 2025-06-12 15:02 | disposition home or self-care (01) ==
PROVIDERS: Emergency Provider Nurse Practitioner; PCP Internal Medicine
DX: F07.81 Postconcussional syndrome (principal); Z87.891 Personal history of nicotine dependence; M79.7 Fibromyalgia; K21.9 Gastro-esophageal reflux disease without esophagitis; F41.9 Anxiety disorder, unspecified; F32.A Depression, unspecified
CPT/HCPCS: 99213; G0463

== ENCOUNTER 2025-09-15 15:31 | Outpatient (CLI) | payer OTHER, SELFPAY ==
--- NOTE | ~2025-09-15 | MM_ITS ---
EXAMINATION: MM screening [facility] BI w sera HISTORY: Screening TECHNIQUE: Craniocaudal and mediolateral oblique 3-D tomosynthesis images were obtained and synthetic 2-D images were generated. CAD analysis was submitted and interpreted. COMPARISON: 06/07/2023 BREAST PARENCHYMAL COMPOSITION: The breasts are heterogeneously dense, which may obscure small masses. FINDINGS: There is no evidence of suspicious mass or architectural distortion to suggest malignancy. Indeterminate calcifications in the lower inner quadrant of the right breast, posterior depth. IMPRESSION: 1. Indeterminate calcifications in the lower inner quadrant of the right breast, posterior depth. The study is incomplete. A diagnostic mammogram is recommended. BI-RADS 0: Incomplete-Need additional imaging evaluation. Reviewed, dictated and finalized at location Q. IMPRESSION: 1. Indeterminate calcifications in the lower inner quadrant of the right breast , posterior depth. The study is incomplete. A diagnostic mammogram is recommend ed. BI-RADS 0: Incomplete-Need additional imaging evaluation.
--- OUTSIDE RECORDS SUMMARY | 2025-09-15 17:33 | XMS_ITS | Clinical Summary ---
Author Organization [facility] Address [address] [place] [id number] Care Team Providers Care Gis Physical Scientist Name Role Phone Unavailable Primary Care Provider Unavailabl e Social History Tobacco Use Types Packs/Day Years Used Date Smoking Tobacco: Never Assessed Comments Unknown Sex and Gender Information Value Date Recorded Sex Assigned at Not on file Legal Sex Female 3:25 PM [employer] Gender Identity Not on file Sexual Orientation Not on file Plan of Treatment Health Maintenance Due Date Last Done Comments Hepatitis C Virus (HCV) Screening 1965 TdaP Immunization 1963 Pap Smear 1984 Cervical Cancer Screening (CCS) 1993 HPV/Cotest 1993 Cologuard 2008 Colonoscopy 2008 Colorectal Cancer Screening 2008 Immunochemical Fecal Occult Blood 2008 Pneumococcal Immunization (5 0+ years) (1 of 1 - PCV) 2013 Zoster Immunization (1 of 2) 2013 Influenza Immunization (#1) 2025 SARS-COV-2 Immunization (2023- season) 2025 Respiratory Syncytial Virus (RSV) Immunization (Adult) (1 - 1-dose 75+ series) 2038 Hepatitis B Immunization Aged Out No longer eligible based on patient's age to complete this topic Human Papillomavirus (HPV) Immunization Aged Out No longer eligible b ased on patient's age to complete this topic Meningococcal Immunization (ACWY) Aged Out No longer eligible based on patient's age to complete this topic Rotavirus Immunization Aged Out No lo nger eligible based on patient's age to complete this topic
== END 2025-09-15 15:32 | disposition home or self-care (01) ==
LOC: ANHFOHIMG 15:32
PROVIDERS: PCP Internal Medicine; Visit Provider Internal Medicine
DX: Z12.31 Encounter for screening mammogram for malignant neoplasm of breast (principal); R92.8 Other abnormal and inconclusive findings on diagnostic imaging of breast
CPT/HCPCS: 77063; 77067

== ENCOUNTER 2025-10-15 08:44 | Outpatient (CLI) | payer OTHER, SELFPAY ==
[2025-10-15 09:04] LABS: Hematocrit 38.9 % (37.0-47.0); Hemoglobin 12.2 g/dL (12.0-15.0); Immature Granulocyte Percent A 0.2 % (0-0.5); Lymphocytes Absolute Auto 2.24 K/mm3 (0.9-3.2); Mean Corpuscular HGB Conc 31.4 g/dl (32-36); Mean Corpuscular Hemoglobin 24.8 pg (26-34); Mean Corpuscular Volume 79.1 fl (80-100); Nucleated Red Blood Cells Absolute Auto 0.000 K/mm3 (0.0-0.012); Nucleated Red Blood Cells Perc 0.0 % (0.0-0.2); Platelet Count Result 307 k/mm3 (150-375); Red Blood Count 4.92 M/mm3 (4.2-5.4); White Blood Count 6.3 K/mm3 (4.5-10.0)
[2025-10-15 09:30] LABS: Alanine Aminotransferase 22 U/L (6-35); Albumin Level 4.2 g/dL (3.5-5.1); Alkaline Phosphatase 107 U/L (38-126); Anion Gap 7 mmol/L (4-12); Aspartate Amino Transferase 34 U/L (14-36); Bilirubin,Total 0.7 mg/dL (0.2-1.3); Blood Urea Nitrogen 18 mg/dL (7-17); Calcium 9.1 mg/dL (8.4-10.2); Carbon Dioxide 24 mmol/L (22-30); Chloride 105 mmol/L (98-107); Cholesterol 192 mg/dL (0-200); Estimated Glomerular Filt Rate > 60; Glucose 107 mg/dL (65-110); HDL Direct 63 mg/dL; Potassium 4.4 mmol/L (3.4-5.0); Sodium 136 mmol/L (137-145); Total Protein 7.7 g/dL (6.3-8.2); Triglycerides 119 mg/dL (<150)
[2025-10-15 09:38] LABS: Hemoglobin A1C 6.4 % (<5.7)
[2025-10-15 10:07] LABS: Thyroid Stimulating Hormone 1.820 uIU/mL (0.465-4.680)
[2025-10-15 10:26] LABS: Vitamin B12 409.0 pg/mL (239-931)
== END 2025-10-15 08:45 | disposition home or self-care (01) ==
LOC: ANHLAB 08:45
PROVIDERS: PCP Family Medicine; Visit Provider Family Medicine
DX: Z00.00 Encounter for general adult medical examination without abnormal findings (principal); Z11.59 Encounter for screening for other viral diseases
CPT/HCPCS: 36415; 80053; 80061; 82306; 82607; 83036; 84443; 85025; 86803

== ENCOUNTER 2025-10-18 13:13 | Outpatient (CLI) | payer OTHER, SELFPAY ==
--- NOTE | ~2025-10-18 | MM_ITS ---
EXAMINATION: MM diagnostic [facility] RT w sera INDICATION: 60-year old female; BI-RADS 0, callback from screening to evaluate indeterminate calcifications in the lower inner right breast at posterior depth. COMPARISON: 09/15/2025 through 12/23/2020 TECHNIQUE: Digital breast magnification CC and ML views of RIGHT breast were obtained. FINDINGS: There are scattered areas of fibroglandular density. A group of coarse heterogeneous microcalcifications linear distribution that spans 3.6 cm seen in medial slightly superior RIGHT breast correlates to the area of concern. IMPRESSION: Suspicious RIGHT breast group of coarse heterogeneous microcalcifications in the medial central and slightly superior location. Biopsy is recommended. RECOMMENDATION: Stereotactic biopsy of superior medial RIGHT breast calcifications. BI-RADS 4, SUSPICIOUS Reviewed, dictated and finalized at location B. R AND [employer] IMPRESSION: Suspicious RIGHT breast group of coarse heterogeneous microcalcific ations in the medial central and slightly superior location. Biopsy is recommen ded. RECOMMENDATION: Stereotactic biopsy of superior medial RIGHT breast calcifications. BI-RADS 4, SUSPICIOUS
== END 2025-10-18 13:14 | disposition home or self-care (01) ==
LOC: ANHFOHIMG 13:14
PROVIDERS: PCP Family Medicine; Visit Provider Internal Medicine
DX: R92.8 Other abnormal and inconclusive findings on diagnostic imaging of breast (principal)
CPT/HCPCS: 77061; 77065; G0279